=== PATIENT | female | born 1985 | race American Indian/Alaskan Native ===

== ENCOUNTER 2016-08-11 23:44 | Outpatient (CLI) | payer MEDICAID ==
[2016-08-12] MEDS ORDERED: VISTARIL PO ONE (02:18)
== END 2016-08-12 02:45 | disposition home or self-care (01) ==
LOC: TRG 23:44
PROVIDERS: ATTEND Obstetrics & Gynecology
DX: O47.1 False labor at or after 37 completed weeks of gestation (principal); Z3A.38 38 weeks gestation of pregnancy
CPT/HCPCS: 59025; Q0177

== ENCOUNTER 2016-08-14 00:58 | Inpatient (IN) | payer MEDICAID ==
[2016-08-14] MEDS ORDERED: LACTATED RINGERS 1,000 ML ONE ×2 (01:23→10:48)
[2016-08-14] MEDS ORDERED: XYLOCAINE 2% INFILTRATI ONE (01:49)
[2016-08-14] MEDS ORDERED: ZOFRAN IV PRN (01:49)
[2016-08-14] MEDS ORDERED: MINERAL OIL PO PRN (01:49)
[2016-08-14] MEDS ORDERED: BRETHINE SUB-Q PRN (01:49)
[2016-08-14] MEDS ORDERED: SUBLIMAZE IV PRN (01:49)
[2016-08-14] MEDS ORDERED: ePHEDrine SULFATE IV PRN ×2 (01:49→03:17)
[2016-08-14] MEDS: LACTATED RINGERS 1,000 ML IV SCH ×2 (01:59→03:00)
[2016-08-14] MEDS ORDERED: PITOCin/NS 20 UNIT/1000ML DRIP 20 UNITS/1,000 ML BAG IV SCH (02:00)
[2016-08-14] MEDS ORDERED: LACTATED RINGERS 1,000 ML IV SCH (02:00)
[2016-08-14] MEDS ORDERED: PITOCin/NS 30 UNIT/500ML 30 UNITS/500 ML BAG IV SCH (02:00)
[2016-08-14 02:09] LABS: Basophils % (Auto) 0.6 % (0.0-1.8); Eosinophils % (Auto) 1.9 % (0.0-4.3); Hematocrit 34.4 % (30.3-42.9); Hemoglobin 11.2 gm/dl (10.1-14.3); Mean Corpuscular HGB Conc 33 % (30-34); Mean Corpuscular Volume 78 fl (79-97); Platelet Count 210 K/mm3 (140-440); Red Blood Count 4.43 M/mm3 (3.65-5.03); Red Cell Distribution Width 15.1 % (13.2-15.2); White Blood Count 10.5 K/mm3 (4.5-11.0)
--- NOTE | 2016-08-14 02:09 | History and Physical Report ---
History of Present Illness Date of examination: 08/14/16 (pt presents in active labor) Date of admission: 08/14/16 01:15 History of present illness: EDC Confirmation: 08/19/2016 Gestational Age: 23 2/7 weeks Past History : 3 Term Births: 2 Living Children: 2 Para: 2 # 1 Delivery date: 06/19/2000 Weeks Gestation: 39 labor: no Delivery type: Delivery location: [place] Sex: Female weight: 6.9 Comments: denies complications # 2 Delivery date: 02/09/2013 Weeks Gestation: 39 labor: no Delivery type: Delivery location: [facility] Infant Sex: Male weight: 6.1 Risk Factors: Smoked Tobacco Use: Former smoker Cigarettes: Yes -- 0.5 pack(s) per day, Pack-years: 15 Year quit: 2016 Years Since Last Quit: 1 Smokeless Tobacco Use: Never Drug use: yes Substance: marijuana Comments: 3-7days a week HIV high-risk behavior: low risk Caffeine use: 0 drinks per day Alcohol use: no Seatbelt use: 100 % Dietary Counseling: pn yes Past Medical History: Asthma Past Surgical History: Negative Past Surgical History Past Medical History Surgery (Non-md psychiatry): Negative Past Surgical History Abnormal PAP: negative CRISTINO Exposure: negative Infertility: negative Uterine Anomaly: negative Uterine Surgery (not C/S): negative Other Gynecologic Problems: negative Infection History Hx of STD: none HIV Risk Eval: low risk Hepatitis B Risk Eval: low risk Personal hx. of genital herpes: no Partner hx. of genital herpes: no Rash, Viral, or Febrile illness since last LMP? no Varicella/Chicken Pox Status: Previous Disease TB Risk: no Genetic History Congenital Heart Defect: Mom: no Dad: no Tammy Disease: Mom: no Dad: no Thalassemia Mom: no Dad: no Neural Tube Defect Mom: no Dad: no Down's Syndrome Mom: no Dad: no Kade-Sachs Mom: no Dad: no Sickle Cell Disease/Trait Mom: no Dad: no Hemophilia Mom: no Dad: no Muscular Dystrophy Mom: no Dad: no Cystic Fibrosis Mom: no Dad: no [place] Chorea Mom: no Dad: no Mental Retardation Mom: no Dad: no Fragile X Mom: no Dad: no Other Genetic/Chromosomal Disorder Mom: no Dad: no Child w/other defect Mom: no Dad: no Enviromental Exposures Xray Exposure: no Medication, drug, or alcohol use since LMP: no Chemical/Other Exposure: no Exposure to Cat Liter: no Hx of Parvovirus (Fifth Disease): no Occupational Exposure to Children: none Current Allergies (reviewed today): PCN (Critical) Laboratory Results Date/Time Collected: 04/24/2016 Routine Urinalysis Leukocytes: negative Nitrite: negative Urobilinogen: negative Protein: Negative Blood: negative Ketone: negative Bilirubin: negative Glucose: Negative Urine HCG: positive Review of Systems General Denies fever, chills, sweats, anorexia, fatigue, weakness, malaise, weight loss and sleep disorder. Denies nausea, vomiting, headache, swelling of legs, abdominal pain, vaginal discharge, vaginal bleeding and contractions. Denies vaginal discharge, incontinence, dysuria, hematuria, urinary frequency, amenorrhea, menorrhagia, abnormal vaginal bleeding, pelvic pain, genital sores, decreased libido, painful periods, painful sex, urinary urgency, hot flashes, vaginal dryness, vaginal itching and vaginal odor. CV Denies chest pains, palpitations, syncope, dyspnea on exertion, orthopnea, PND and peripheral edema. Resp Denies cough, dyspnea at rest, excessive sputum, hemoptysis, wheezing and pleurisy. GI Denies nausea, vomiting, diarrhea, constipation, change in bowel habits, abdominal pain, melena, hematochezia, jaundice, gas/bloating, indigestion/ heartburn, dysphagia and odynophagia. Endo Denies cold intolerance, heat intolerance, polydipsia, polyphagia, polyuria and unusual weight change. Breast Denies left breast lump, right breast lump, nipple discharge, bloody discharge from nipple, breast pain, abnormal mammogram and breast enlargement. MS Denies back pain, joint pain, joint swelling, muscle cramps, muscle weakness, stiffness, arthritis, sciatica, restless legs, leg pain at night and leg pain with exertion. Derm Denies rash, itching, dryness and suspicious lesions. Neuro Denies paralysis, paresthesias, headache, seizures, tremors, vertigo, transient blindness, frequent falls, frequent headaches and difficulty walking. Psych Denies depression, anxiety, irritability and mood swings. Eyes Denies blurring, diplopia, irritation, discharge, vision loss, eye pain and photophobia. ENT Denies earache, ear discharge, tinnitus, decreased hearing, nasal congestion, nosebleeds, sore throat and hoarseness. Allergy Denies urticaria, allergic rash, hay fever and recurrent infections. Heme Denies abnormal bruising, bleeding and enlarged lymph nodes. 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/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: No lesions, normal BUS, normal rugae Cervix: No lesions; no cervical motion tenderness Uterus: normal size and position, midline, mobile Adnexae: no masses or tenderness Rectovaginal: no masses or tenderness Past History - Obstetrical History Expected Date of Delivery: 08/19/16 Actual Gestation: 39 Week(s) 2 Day(s) : 3 Para: 2 Hx # Term Pregnancies: 2 Number of Living Children: 2 Medications and Allergies Allergies Allergy/AdvReac Type Severity Reaction Status Date / Time Penicillins Allergy Rash Verified 11/20/12 15:09 Home Medications Medication Instructions Recorded Confirmed Last Taken Type Vit No.126/Iron/FA 1 each PO DAILY 02/08/13 08/12/16 02/08/13 10:00 History [Classic Tablet] Active Meds: Active Medications Fentanyl (Sublimaze) 100 mcg IV Q2H PRN PRN Reason: Labor Pain Last Admin: 08/14/16 02:02 Dose: 100 mcg Oxytocin/Sodium Chloride (Pitocin/Ns 20 Unit/1000ml Drip) 20 units in 1,000 mls @ 0 mls/hr IV DIRECT ISMAEL PRN Reason: As Directed Lactated Ringer's (Lactated Ringers) 1,000 mls @ 125 mls/hr IV DIRECT ISMAEL Last Admin: 08/14/16 01:59 Dose: 999 mls/hr Oxytocin/Sodium Chloride (Pitocin/Ns 30 Unit/500ml) 30 units in 500 mls @ 4 mls /hr IV Q30MIN ISMAEL PRN Reason: Protocol Mineral Oil (Mineral Oil) 30 ml PO QHS PRN PRN Reason: Constipation Ondansetron HCl (Zofran) 4 mg IV Q8H PRN PRN Reason: Nausea And Vomiting - Vital Signs Vital signs: Vital Signs Pulse BP 56 L 132/74 08/14/16 01:29 08/14/16 01:29 Temp Pulse Resp BP Pulse Ox 98.1 F 56 L 22 132/74 08/14/16 01:57 08/14/16 01:29 08/14/16 02:02 08/14/16 01:29 - Physical Exam Breasts: Positive: deferred Cardiovascular: Regular rate, Normal S1, Normal S2 Lungs: Positive: Normal air movement Abdomen: Positive: normal appearance, soft, normal bowel sounds. Negative: distention, tenderness Genitourinary (Female): Positive: normal external genitalia Vulva: both: normal Vagina: Positive: normal moisture. Negative: discharge Cervix: Negative: lesion, discharge Uterus: Positive: normal size, normal contour Adnexa: both: normal Anus/Rectum: Positive: normal perianal skin, heme negative. Negative: rectal mass, hemorrhoids Extremities: Positive: normal Deep Tendon Reflex Grade: Normal +2 - Obstetrical FHR: category 1 Uterine Contraction Monitor Mode: External Cervical Dilatation: 4 Cervical Effacement Percentage: 90 station: -1 Uterine Contraction Pattern: Regular Uterine Contraction Intensity: Moderate Results All other labs normal. Laboratory Data-Patient Name: JEFF ACUÑA Test Date Result Blood Type 05/10/2016 O Rh 05/10/2016 Positive Antibody Screen negative Rubella 05/10/2016 IMMUNE Serology (RPR) 07/20/2016 NR HBsAg 05/10/2016 Negative Hemoglobin 05/10/2016 11.1 Hematocrit 05/10/2016 35.9 Platelets 05/10/2016 205 X10E3/UL Chlamydia DNA 07/20/2016 Negative GC DNA/Culture 07/20/2016 Urine Culture 05/10/2016 Final report Group B Strep cult Negative PAP 04/24/2016 Normal, Vaginal HIV 07/20/2016 AFP/Quad Screen Glucola Test 3hr GTT (Fasting) 1 hr 2 hr 3 hr OPTIONAL LABS-Patient Name:JEFF ACUÑA Test Date Result Varicella Ab Sickle Cell 05/10/2016 Negative PPD Fibronectin Cystic Fibrosis Parvovirus TSH Free T4 Hepatitis C ALT AST Uric Acid Creatinine 24 hr Urine Protein VINNY Assessment and Plan 31yo @ 39 weeks in active labor GBS negative Orders in EMR.
[2016-08-14 02:55] LABS: Mean Corpuscular Hemoglobin 25 pg (28-32)
--- NOTE | 2016-08-14 03:16 | Anesthesia Consultation ---
Anesthesia Consult and Med Hx Date of service: 08/14/16 - Airway Anesthetic Teeth Evaluation: Good ROM Head & Neck: Adequate Mental/Hyoid Distance: Adequate Mallampati Class: Class II Intubation Access Assessment: Probably Good - Pulmonary Exam CTA: Yes - Cardiac Exam Cardiac Exam: RRR - Pre-Operative Health Status ASA Pre-Surgery Classification: ASA2 Proposed Anesthetic Plan: Epidural - Pulmonary Hx Asthma: Yes (last attack 2 yrs ago) COPD: No Hx Pneumonia: No - Cardiovascular System Hx Hypertension: No Hx Heart Attack/AMI: No Hx Valvular Heart Disease: No - Central Nervous System Hx Seizures: No CVA: No Hx Psychiatric Problems: No - Endocrine Hx Renal Disease: No Hx End Stage Renal Disease: No Hx Liver Disease: No Hx Hypothyroidism: No Hx Hyperthyroidism: No - Hematic Hx Anemia: No Hx Sickle Cell Disease: No - Other Systems Hx Alcohol Use: No Hx Substance Use: Yes (marijuana 3 weeks ago) Hx Cancer: No
[2016-08-14] MEDS ORDERED: NARCAN 2 MG/2 ML IV PRN (03:17)
--- NOTE | 2016-08-14 03:26 | Progress Note ---
Assessment and Plan anticipate delivery Subjective - Subjective Date of service: 08/14/16 (comfortable with epidural) Interval history: EDC Confirmation: 08/19/2016 Gestational Age: 23 2/7 weeks Past History : 3 Term Births: 2 Living Children: 2 Para: 2 # 1 Delivery date: 06/19/2000 Weeks Gestation: 39 labor: no Delivery type: Delivery location: [place] Infant Sex: Female weight: 6.9 Comments: denies complications # 2 Delivery date: 02/09/2013 Weeks Gestation: 39 labor: no Delivery type: Delivery location: [facility] Sex: Male weight: 6.1 Risk Factors: Smoked Tobacco Use: Former smoker Cigarettes: Yes -- 0.5 pack(s) per day, Pack-years: 15 Year quit: 2016 Years Since Last Quit: 1 Smokeless Tobacco Use: Never Drug use: yes Substance: marijuana Comments: 3-7days a week HIV high-risk behavior: low risk Caffeine use: 0 drinks per day Alcohol use: no Seatbelt use: 100 % Dietary Counseling: pn yes Past Medical History: Asthma Past Surgical History: Negative Past Surgical History Past Medical History Surgery (Non-die maintenance): Negative Past Surgical History Abnormal PAP: negative CRISTINO Exposure: negative Infertility: negative Uterine Anomaly: negative Uterine Surgery (not C/S): negative Other Gynecologic Problems: negative Infection History Hx of STD: none HIV Risk Eval: low risk Hepatitis B Risk Eval: low risk Personal hx. of genital herpes: no Partner hx. of genital herpes: no Rash, Viral, or Febrile illness since last LMP? no Varicella/Chicken Pox Status: Previous Disease TB Risk: no Genetic History Congenital Heart Defect: Mom: no Dad: no Tammy Disease: Mom: no Dad: no Thalassemia Mom: no Dad: no Neural Tube Defect Mom: no Dad: no Down's Syndrome Mom: no Dad: no Kade-Sachs Mom: no Dad: no Sickle Cell Disease/Trait Mom: no Dad: no Hemophilia Mom: no Dad: no Muscular Dystrophy Mom: no Dad: no Cystic Fibrosis Mom: no Dad: no [place] Chorea Mom: no Dad: no Mental Retardation Mom: no Dad: no Fragile X Mom: no Dad: no Other Genetic/Chromosomal Disorder Mom: no Dad: no Child w/other defect Mom: no Dad: no Enviromental Exposures Xray Exposure: no Medication, drug, or alcohol use since LMP: no Chemical/Other Exposure: no Exposure to Cat Liter: no Hx of Parvovirus (Fifth Disease): no Occupational Exposure to Children: none Current Allergies (reviewed today): PCN (Critical) Laboratory Results Date/Time Collected: 04/24/2016 Routine Urinalysis Leukocytes: negative Nitrite: negative Urobilinogen: negative Protein: Negative Blood: negative Ketone: negative Bilirubin: negative Glucose: Negative Urine HCG: positive Review of Systems General Denies fever, chills, sweats, anorexia, fatigue, weakness, malaise, weight loss and sleep disorder. Denies nausea, vomiting, headache, swelling of legs, abdominal pain, vaginal discharge, vaginal bleeding and contractions. Denies vaginal discharge, incontinence, dysuria, hematuria, urinary frequency, amenorrhea, menorrhagia, abnormal vaginal bleeding, pelvic pain, genital sores, decreased libido, painful periods, painful sex, urinary urgency, hot flashes, vaginal dryness, vaginal itching and vaginal odor. CV Denies chest pains, palpitations, syncope, dyspnea on exertion, orthopnea, PND and peripheral edema. Resp Denies cough, dyspnea at rest, excessive sputum, hemoptysis, wheezing and pleurisy. GI Denies nausea, vomiting, diarrhea, constipation, change in bowel habits, abdominal pain, melena, hematochezia, jaundice, gas/bloating, indigestion/ heartburn, dysphagia and odynophagia. Endo Denies cold intolerance, heat intolerance, polydipsia, polyphagia, polyuria and unusual weight change. Breast Denies left breast lump, right breast lump, nipple discharge, bloody discharge from nipple, breast pain, abnormal mammogram and breast enlargement. MS Denies back pain, joint pain, joint swelling, muscle cramps, muscle weakness, stiffness, arthritis, sciatica, restless legs, leg pain at night and leg pain with exertion. Derm Denies rash, itching, dryness and suspicious lesions. Neuro Denies paralysis, paresthesias, headache, seizures, tremors, vertigo, transient blindness, frequent falls, frequent headaches and difficulty walking. Psych Denies depression, anxiety, irritability and mood swings. Eyes Denies blurring, diplopia, irritation, discharge, vision loss, eye pain and photophobia. ENT Denies earache, ear discharge, tinnitus, decreased hearing, nasal congestion, nosebleeds, sore throat and hoarseness. Allergy Denies urticaria, allergic rash, hay fever and recurrent infections. Heme Denies abnormal bruising, bleeding and enlarged lymph nodes. 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: No lesions, normal BUS, normal rugae Cervix: No lesions; no cervical motion tenderness Uterus: normal size and position, midline, mobile Adnexae: no masses or tenderness Rectovaginal: no masses or tenderness Patient reports: movement normal Objective - Vital Signs Vital Signs: Vital Signs - 12hr 08/14/16 08/14/16 08/14/16 01:29 01:57 02:02 Temperature 98.1 F Pulse Rate 56 L Respiratory 20 22 Rate Blood Pressure 132/74 O2 Sat by Pulse Oximetry 08/14/16 08/14/16 08/14/16 02:35 02:40 02:45 Temperature Pulse Rate 60 56 L 80 Respiratory Rate Blood Pressure O2 Sat by Pulse 97 100 99 Oximetry 08/14/16 08/14/16 08/14/16 02:50 02:53 02:55 Temperature Pulse Rate 67 68 67 Respiratory Rate Blood Pressure 148/81 O2 Sat by Pulse 100 100 Oximetry 08/14/16 08/14/16 08/14/16 02:57 02:58 03:00 Temperature Pulse Rate 68 74 65 Respiratory Rate Blood Pressure 149/82 142/79 149/76 O2 Sat by Pulse 100 Oximetry 08/14/16 08/14/16 08/14/16 03:02 03:04 03:05 Temperature Pulse Rate 70 76 68 Respiratory Rate Blood Pressure 148/82 122/80 O2 Sat by Pulse 99 Oximetry 08/14/16 08/14/16 08/14/16 03:08 03:10 03:12 Temperature Pulse Rate 58 L 64 61 Respiratory Rate Blood Pressure 136/78 127/84 127/70 O2 Sat by Pulse 100 Oximetry 08/14/16 08/14/16 08/14/16 03:14 03:15 03:16 Temperature Pulse Rate 65 74 61 Respiratory Rate Blood Pressure 121/78 124/75 O2 Sat by Pulse 100 Oximetry 08/14/16 08/14/16 03:18 03:20 Temperature Pulse Rate 76 67 Respiratory Rate Blood Pressure 117/76 128/69 O2 Sat by Pulse 100 Oximetry - Exam Breasts: deferred Cardiovascular: Regular rate Lungs: Normal air movement Abdomen: Present: normal appearance, soft. Absent: distention, tenderness Uterus: Present: normal FHR: auscultation normal, category 2 (variables) Uterine Contraction Monitor Mode: Internal Cervical Dilatation: 8 (AROM clear) Cervical Effacement Percentage: 100 (ISE) station: 0 Uterine Contraction Pattern: Regular Uterine Tone Measurement Phase: Resting Uterine Contraction Intensity: Moderate Extremities: normal Deep Tendon Reflex Grade: Normal +2 - Labs Labs: Abnormal Labs 08/14/16 01:35 MCV 78 L MCH 25 L [place] % (Auto) 8.2 H [place] # 0.9 H Laboratory Results - last 24 hr 08/14/16 08/14/16 01:35 01:35 WBC 10.5 RBC 4.43 Hgb 11.2 Hct 34.4 MCV 78 L MCH 25 L MCHC 33 RDW 15.1 Plt Count 210 Lymph % (Auto) 20.3 [place] % (Auto) 8.2 H Eos % (Auto) 1.9 Baso % (Auto) 0.6 Lymph # 2.1 [place] # 0.9 H Eos # 0.2 Baso # 0.1 Seg Neutrophils % 69.0 Seg Neutrophils # 7.2 Blood Type O POSITIVE AARTI Antibody Screen Negative
[2016-08-14] MEDS ORDERED: fentaNYL-BUPIV 2 MCG/ML-0.125% 200 MCG/100 ML BAG EPIDURAL SCH (04:00)
[2016-08-14] MEDS ORDERED: METHERGINE IM ONE ×2 (04:03→04:11)
[2016-08-14] MEDS ORDERED: DULCOLAX PR PRN (04:13)
[2016-08-14] MEDS ORDERED: TYLENOL PO PRN (04:13)
[2016-08-14] MEDS ORDERED: BENADRYL PO PRN (04:13)
[2016-08-14] MEDS ORDERED: METHERGINE PO PRN (04:13)
[2016-08-14] MEDS ORDERED: LANSINOH TP PRN (04:13)
[2016-08-14] MEDS ORDERED: MILK OF MAGNESIA PO PRN (04:13)
[2016-08-14] MEDS ORDERED: TUCKS PAD TP PRN (04:13)
[2016-08-14] MEDS ORDERED: PHENERGAN PO PRN (04:13)
--- NOTE | 2016-08-14 04:21 | Procedure Note ---
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 meconium stained vernex noted at delivery Baby crying vigorously Placed skin to skin on mom's abdomen. Cord blood obtained Placenta and membrane del complete and intact, 3 vessel cord. Pit IVFs Several lg clots removed Methergine IM given. 8/9, EBL 400, Wgt 6 -2. Mom and baby remain LDR stable FF @ umb Lochia small. - Infant A at 1 minute: 8 at 5 minutes: 9 Gender: Male (wgt 6-2)
[2016-08-14] MEDS ORDERED: SODIUM CHLORIDE FLUSH SYRINGE 10 ML IV PRN (05:00)
--- NOTE | 2016-08-14 05:23 | Event Note ---
Date: 08/14/16 (elevated BPs post delivery) Notified by RN of BPs > 160/100 X 3 in the period. PIH labs drawn with a cath UA. Will consult with . Will start MGSO4 4GM bolus then 2GM/Hr. All orders in EMR
[2016-08-14] MEDS ORDERED: MAGNESIUM SULFATE 40GM/1000ML 40 GM/1,000 ML BAG IV ONE (05:39)
[2016-08-14] MEDS ORDERED: MAGNESIUM SULFATE 4GM/100ML 4 GM/100 ML BAG IV ONE ×2 (05:39)
[2016-08-14] MEDS ORDERED: MAGNESIUM SULFATE 40GM/1000ML 40 GM/1,000 ML BAG IV SCH (06:00)
[2016-08-14 06:02] LABS: Bilirubin,Urine NEG (Negative); Blood,Urine MOD (Negative); Ketones,Urine NEG (Negative); Leukocyte Esterase,Urine NEG (Negative); Mucus,Urine FEW /HPF; Nitrite,Urine NEG (Negative); Protein,Urine <15 mg/dL mg/dL (Negative); Urobilinogen,Urine < 2.0 mg/dL (<2.0); WBC,Urine < 1.0 /HPF (0.0-6.0)
[2016-08-14 06:13] LABS: Alanine Aminotransferase 15 units/L (7-56); Lactate Dehydrogenase 459 units/L (91-180); Uric Acid 5.2 mg/dL (3.5-7.6)
[2016-08-14] MEDS: MOTRIN PO SCH ×3 (06:14→21:10)
[2016-08-14] MEDS: NORCO 5/325 PO PRN ×2 (11:42→21:09)
[2016-08-14] MEDS: COLACE PO SCH ×2 (11:43→21:10)
[2016-08-14] MEDS: PRENATAL VITAMIN PO SCH (11:44)
[2016-08-14 17:19] LABS: Hematocrit 34.9 % (30.3-42.9); Hemoglobin 11.3 gm/dl (10.1-14.3)
[2016-08-15] MEDS ORDERED: M-M-R II VACCINE SUB-Q ONE (04:13)
[2016-08-15] MEDS: NORCO 5/325 PO PRN (04:21)
[2016-08-15] MEDS: MOTRIN PO SCH ×3 (04:22→17:46)
[2016-08-15] MEDS ORDERED: BOOSTRIX IM ONE (06:00)
--- NOTE | 2016-08-15 07:00 | Progress Note ---
Assessment and Plan - Patient Problems (1) Blood pressure elevated without history of HTN Onset Date: ~08/14/16 Current Visit: Yes Status: Acute Plan to address problem: 24hr MGSO4 completed @ 0330 this AM. Pt w/o c/o VALLECILLO, blurred vision, chest pain. BP 130/70s afebrile FF below umb Lochia small Perineum intact H&H stable post delivery Doing well s/p vag delivery with elevated BP . P: continue pathway today plan d/c tomorrow if stable. Subjective - Subjective Date of service: 08/15/16 (pt resting No c/o voiced) Principal diagnosis: Day # 1 s/p with PP PreE Interval history: EDC Confirmation: 08/19/2016 Gestational Age: 23 2/7 weeks Past History : 3 Term Births: 2 Living Children: 2 Para: 2 # 1 Delivery date: 06/19/2000 Weeks Gestation: 39 labor: no Delivery type: [facility] location[facility] Sex: Female weight: 6.9 Comments: denies complications # 2 Delivery date: 02/09/2013 Weeks Gestation: 39 labor: no Delivery type: Delivery location: [facility] Infant Sex: Male weight: 6.1 Risk Factors: Smoked Tobacco Use: Former smoker Cigarettes: Yes -- 0.5 pack(s) per day, Pack-years: 15 Year quit: 2016 Years Since Last Quit: 1 Smokeless Tobacco Use: Never Drug use: yes Substance: marijuana Comments: 3-7days a week HIV high-risk behavior: low risk Caffeine use: 0 drinks per day Alcohol use: no Seatbelt use: 100 % Dietary Counseling: pn yes Past Medical History: Asthma Past Surgical History: Negative Past Surgical History Past Medical History 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 of genital herpes: no Partner hx. of genital herpes: no Rash, Viral, or Febrile illness since last LMP? no Varicella/Chicken Pox Status: Previous Disease TB Risk: no Genetic History Congenital Heart Defect: Mom: no Dad: no Tammy Disease: Mom: no Dad: no Thalassemia Mom: no Dad: no Neural Tube Defect Mom: no Dad: no Down's Syndrome Mom: no Dad: no Kade-Sachs Mom: no Dad: no Sickle Cell Disease/Trait Mom: no Dad: no Hemophilia Mom: no Dad: no Muscular Dystrophy Mom: no Dad: no Cystic Fibrosis Mom: no Dad: no Sharp Chorea Mom: no Dad: no Mental Retardation Mom: no Dad: no Fragile X Mom: no Dad: no Other Genetic/Chromosomal Disorder Mom: no Dad: no Child w/other defect Mom: no Dad: no Enviromental Exposures Xray Exposure: no Medication, drug, or alcohol use since LMP: no Chemical/Other Exposure: no Exposure to Cat Liter: no Hx of Parvovirus (Fifth Disease): no Occupational Exposure to Children: none Current Allergies (reviewed today): PCN (Critical) Laboratory Results Date/Time Collected: 04/24/2016 Routine Urinalysis Leukocytes: negative Nitrite: negative Urobilinogen: negative Protein: Negative Blood: negative Ketone: negative Bilirubin: negative Glucose: Negative Urine HCG: positive Review of Systems General Denies fever, chills, sweats, anorexia, fatigue, weakness, malaise, weight loss and sleep disorder. Denies nausea, vomiting, headache, swelling of legs, abdominal pain, vaginal discharge, vaginal bleeding and contractions. Denies vaginal discharge, incontinence, dysuria, hematuria, urinary frequency, amenorrhea, menorrhagia, abnormal vaginal bleeding, pelvic pain, genital sores, decreased libido, painful periods, painful sex, urinary urgency, hot flashes, vaginal dryness, vaginal itching and vaginal odor. CV Denies chest pains, palpitations, syncope, dyspnea on exertion, orthopnea, PND and peripheral edema. Resp Denies cough, dyspnea at rest, excessive sputum, hemoptysis, wheezing and pleurisy. GI Denies nausea, vomiting, diarrhea, constipation, change in bowel habits, abdominal pain, melena, hematochezia, jaundice, gas/bloating, indigestion/ heartburn, dysphagia and odynophagia. Endo Denies cold intolerance, heat intolerance, polydipsia, polyphagia, polyuria and unusual weight change. Breast Denies left breast lump, right breast lump, nipple discharge, bloody discharge from nipple, breast pain, abnormal mammogram and breast enlargement. MS Denies back pain, joint pain, joint swelling, muscle cramps, muscle weakness, stiffness, arthritis, sciatica, restless legs, leg pain at night and leg pain with exertion. Derm Denies rash, itching, dryness and suspicious lesions. Neuro Denies paralysis, paresthesias, headache, seizures, tremors, vertigo, transient blindness, frequent falls, frequent headaches and difficulty walking. Psych Denies depression, anxiety, irritability and mood swings. Eyes Denies blurring, diplopia, irritation, discharge, vision loss, eye pain and photophobia. ENT Denies earache, ear discharge, tinnitus, decreased hearing, nasal congestion, nosebleeds, sore throat and hoarseness. Allergy Denies urticaria, allergic rash, hay fever and recurrent infections. Heme Denies abnormal bruising, bleeding and enlarged lymph nodes. 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, or edema YARDER Exams Vulva/Vagina: No lesions, normal BUS, normal rugae Cervix: No lesions; no cervical motion tenderness Uterus: normal size and position, midline, mobile Adnexae: no masses or tenderness Rectovaginal: no masses or tenderness Patient reports: appetite normal, voiding normally, pain well controlled, ambulating normally : doing well Objective - Vital Signs Latest vital signs: Vital Signs Temp Pulse Resp BP 08/15/16 04:30 98.2 F 64 18 135/77 08/15/16 00:00 98.4 F 76 20 137/73 08/14/16 22:00 98.2 F 88 20 137/79 08/14/16 20:10 98.1 F 82 18 125/77 08/14/16 16:40 98.3 F 81 18 132/72 08/14/16 12:20 98.5 F 79 18 115/69 08/14/16 10:35 98.1 F 70 18 118/72 08/14/16 08:10 98.3 F 67 19 118/73 Intake and Output 08/14/16 08/14/16 08/15/16 14:59 22:59 06:59 Intake Total 720 840 480 Output Total 1999 2250 900 Balance -1280 -1410 -420 Intake: Oral 720 840 480 Output: Urine 1999 2250 900 Indwelling Catheter 1999 2250 900 Other: Total, Intake Amount 240 240 240 Total, Output Amount 1300 1300 600 - Exam Breasts: Present: normal Cardiovascular: Present: Regular rate Lungs: Present: Clear to auscultation Abdomen: Present: normal appearance, soft Vulva: both: normal Uterus: Present: normal, firm, fundal height below umbilicus Extremities: Present: normal Deep Tendon Reflex Grade: Normal +2 Incision: Present: normal - Labs Labs: Abnormal lab results 08/14/16 08/14/16 08/14/16 Range/Units 10:36 16:51 21:52 Magnesium 4.70 H 5.80 H 5.80 H (1.7-2.3) mg/dL 08/15/16 Range/Units 05:27 Magnesium 3.50 H (1.7-2.3) mg/dL
[2016-08-15] MEDS: PRENATAL VITAMIN PO SCH (10:31)
[2016-08-15] MEDS: COLACE PO SCH ×2 (10:31→22:00)
[2016-08-16] MEDS: MOTRIN PO SCH ×3 (00:24→11:36)
[2016-08-16] MEDS ORDERED: BOOSTRIX IM ONE (06:00)
--- NOTE | 2016-08-16 08:57 | Progress Note ---
Assessment and Plan Patient doing well, desires d/c home JOSIE. denies VALLECILLO, visual changes or epigastric pain. B/P stable 130-140/70-80, H&H stable, Lochia scant. Plan for d/ c home with f/u 1 week in office for b/p check. - Patient Problems (1) Blood pressure elevated without history of HTN Onset Date: ~08/14/16 Current Visit: Yes Status: Acute (2) Spontaneous vaginal delivery Current Visit: Yes Status: Acute Subjective - Subjective Date of service: 08/16/16 Principal diagnosis: Day # 2 s/p with PP PreE Patient reports: appetite normal, voiding normally, pain well controlled, ambulating normally, no dizzy ambulation, no nauseated [place]: doing well, bottle feeding Objective - Vital Signs Latest vital signs: Vital Signs Temp Pulse Resp BP 08/16/16 01:43 98.7 F 86 20 137/73 08/15/16 16:45 98.5 F 56 L 18 140/78 08/15/16 12:37 18 08/15/16 12:15 98.7 F 66 18 139/81 Intake and Output 08/15/16 08/16/16 08/16/16 22:59 06:59 14:59 Intake Total 600 120 Balance 600 120 Intake: Oral 600 120 Other: Total, Intake Amount 240 120 # Voids Indwelling Catheter 1 1 - Exam Breasts: Present: normal Cardiovascular: Present: Regular rate Lungs: Present: Clear to auscultation, Normal air movement Abdomen: Present: normal appearance, soft, normal bowel sounds Vulva: both: normal Uterus: Present: normal, firm, fundal height at umbilicus Extremities: Present: normal Deep Tendon Reflex Grade: Normal +2
--- NOTE | 2016-08-16 09:00 | Discharge Summary ---
Providers - Providers Date of Admission: 08/14/16 01:15 Date of discharge: 08/16/16 (desires d/c home) Attending physician: MADDIE HOLLEY Primary care physician: MADDIE HOLLEY Hospitalization Reason for admission: active labor Delivery: Episiotomy: none Laceration: none Other procedures: none complications: other (eleavted b/p) Discharge diagnosis: IUP at term delivered [place] baby: male Hospital course: uncomplicated vaginal Condition at discharge: Good Disposition: DC-01 TO HOME OR SELFCARE - Discharge Diagnoses (1) Blood pressure elevated without history of HTN Status: Acute (2) Spontaneous vaginal delivery Status: Acute Plan - Discharge Medications Prescriptions: Ibuprofen [Motrin 800 MG tab] 800 mg PO Q8HR PRN #30 tablet PRN Reason: Pain Lidocain2.5%/Prilocai2.5% [Emla] 5 gm TP ONCE PRN #1 tube PRN Reason: Pain - Provider Discharge Summary Activity: routine, no sex for 6 weeks, no heavy lifting 4 weeks, no strenuous exercise Diet: routine Instructions: routine Additional instructions: [] Smoking cessation referral if applicable(refer to patient education folder for contact #) [] Refer to [facility]'s [facility] Booklet Call your doctor immediately for: * Fever > 100.5 * Heavy vaginal bleeding ( >1 pad per hour) * Severe persistent headache * Shortness of breath * Reddened, hot, painful area to leg or breast * Drainage or odor from incision. * Keep incision clean and dry at all times and follow doctor's instructions regarding bathing/showering - Follow up plan Follow up: MADDIE HOLLEY MD [Primary Care Provider] - 7 Days (congratulations!! Please call [phone] to schedule your blood pressure check and your son's circumcision in 1 week. bring EMLA cream to your son's appointment. Call for any headache, visual changes or upper abdominal pain. )
[2016-08-16 11:01] VITALS: BP 156/75
[2016-08-16] MEDS: COLACE PO SCH (11:36)
[2016-08-16] MEDS: PRENATAL VITAMIN PO SCH (11:37)
== END 2016-08-16 11:55 | disposition home or self-care (01) | DRG 774 ==
LOC: TRG 00:58 → LD 01:15 → OB 06:25
PROVIDERS: ADMIT Obstetrics & Gynecology; ATTEND Obstetrics & Gynecology
PROC: 10E0XZZ Delivery of Products of Conception, External Approach (ICD-10-PCS; principal; 2016-08-14)
PROC: 00HU33Z Insertion of Infusion Device into Spinal Canal, Percutaneous Approach (ICD-10-PCS; 2016-08-14)
PROC: 3E0R3CZ (ICD-10-PCS; 2016-08-14)
PROC: 3E0234Z Introduction of Serum, Toxoid and Vaccine into Muscle, Percutaneous Approach (ICD-10-PCS; 2016-08-14)
DX: O77.0 Labor and delivery complicated by meconium in amniotic fluid (principal); O90.89 Other complications of the puerperium, not elsewhere classified; O99.324 Drug use complicating childbirth; F12.90 Cannabis use, unspecified, uncomplicated; O99.52 Diseases of the respiratory system complicating childbirth; J45.909 Unspecified asthma, uncomplicated; R03.0 Elevated blood-pressure reading, without diagnosis of hypertension; Z3A.39 39 weeks gestation of pregnancy; Z37.0 Single live birth; Z88.0 Allergy status to penicillin; Z87.891 Personal history of nicotine dependence
CPT/HCPCS: 36415; 81001; 82565; 83615; 83735; 84450; 84460; 84550; 85014; 85018; 85025; 86592; 86850; 86900; 86901; 90471; 90715; J2210; J2405; J2590; J3010; J3475; J7120

== ENCOUNTER 2019-12-21 21:59 | Emergency (ER) | payer MEDICAID ==
[2019-12-21 22:46] VITALS: BP 121/66
[2019-12-21 23:13] LABS: Bilirubin,Urine NEG (Negative); Blood,Urine LG (Negative); Color,Urine Straw (Yellow); Protein,Urine <15 mg/dL mg/dL (Negative); Urobilinogen,Urine < 2.0 mg/dL (<2.0)
[2019-12-22 00:16] LABS: Basophils % (Auto) 0.4 % (0.0-1.8); Eosinophils # (Auto) 0.2 K/mm3 (0.0-0.4); Eosinophils % (Auto) 2.9 % (0.0-4.3); Hematocrit 34.6 % (30.3-42.9); Hemoglobin 11.5 gm/dl (10.1-14.3); Lymphocytes # (Auto) 2.8 K/mm3 (1.2-5.4); Lymphocytes % (Auto) 37.5 % (13.4-35.0); Mean Corpuscular HGB Conc 33 % (30-34); Mean Corpuscular Volume 82 fl (79-97); Monocytes # (Auto) 0.4 K/mm3 (0.0-0.8); Monocytes % (Auto) 6.1 % (0.0-7.3); Platelet Count 256 K/mm3 (140-440); Red Blood Count 4.21 M/mm3 (3.65-5.03); Red Cell Distribution Width 14.8 % (13.2-15.2)
== END 2019-12-22 01:00 | disposition left against medical advice (07) ==
LOC: ED 21:59
DX: O20.8 Other hemorrhage in early pregnancy (principal); Z53.21 Procedure and treatment not carried out due to patient leaving prior to being seen by health care provider
CPT/HCPCS: 36415; 81001; 84702; 85025; 86900; 86901